=== PATIENT | male | born 1930 | race Native Hawaiian/Other Pacific Islander ===

== ENCOUNTER 2016-12-15 08:08 | Outpatient (CLI) | payer OTHER, MEDICARE ==
[~2016-12-15 08:08] MED LIST: CEPH500C20 PO; TOBRSUS OP
[2016-12-15 09:11] LABS: PLATELET COUNT 230 K/uL (142-355)
[2016-12-15 09:34] LABS: POTASSIUM 5.1 mmol/L (3.6-5.2)
== END 2016-12-15 19:06 | disposition home or self-care (01) ==
LOC: LABW 08:08
PROVIDERS: Internal Medicine
DX: I10 Essential (primary) hypertension (principal)
CPT/HCPCS: 36415; 80053; 80061; 81000; 82607; 84443; 85027

== ENCOUNTER 2017-06-24 11:01 | Outpatient (CLI) | payer OTHER, MEDICARE | END 2017-06-24 12:30 | disposition home or self-care (01) | LOC: LABW 11:01 | DX: R22.31 Localized swelling, mass and lump, right upper limb (principal) | CPT/HCPCS: 36415; 84550 ==

== ENCOUNTER 2017-09-16 09:33 | Outpatient (CLI) | payer OTHER, MEDICARE | END 2017-09-16 18:58 | disposition home or self-care (01) | LOC: RAD 09:33 | DX: M25.512 Pain in left shoulder (principal) ==

== ENCOUNTER 2018-01-10 07:45 | Outpatient (CLI) | payer OTHER, MEDICARE ==
[2018-01-10 08:15] LABS: PLATELET COUNT 234 K/uL (142-355)
== END 2018-01-10 18:16 | disposition home or self-care (01) ==
LOC: LABW 07:45
PROVIDERS: Internal Medicine
DX: E53.8 Deficiency of other specified B group vitamins (principal); I10 Essential (primary) hypertension; E55.9 Vitamin D deficiency, unspecified; R82.99 Other abnormal findings in urine; R79.89 Other specified abnormal findings of blood chemistry
CPT/HCPCS: 36415; 80053; 80061; 81000; 82306; 82607; 82728; 82747; 83540; 84100; 84443; 85027; 87086; 87088